=== PATIENT | male | born 1940 | race Caucasian/White ===

== ENCOUNTER → 2018-01-13 | Outpatient (CLI) | payer MEDICARE, BC ==
[~2018-01-13] MED LIST: ALBU6.7H INH; AMLO5TAB7 PO; AMOX1TAB61 PO; ASPI325T17 PO; ATOR20TA PO; FLUT1DIS3 INH; LEVO100T PO; METR500T PO; OXYC-306 PO; PARO10TA56 PO; VALS320T2 PO
== END | disposition home or self-care (01) ==
LOC: CVU 09:42
PROVIDERS: ATTEND Internal Medicine Cardiovascular Disease
DX: I65.23 Occlusion and stenosis of bilateral carotid arteries (principal); E78.00 Pure hypercholesterolemia, unspecified; I10 Essential (primary) hypertension; E78.5 Hyperlipidemia, unspecified
CPT/HCPCS: 93880

== ENCOUNTER → 2019-05-15 | Outpatient (CLI) | payer MEDICARE, BC ==
[~2019-05-15] MED LIST changes: -ALBU6.7H INH; +ALBU6.7H8 INH; +AMLO-150 PO; -AMLO5TAB7 PO; +REGADENOSON 0.4 MG/5 ML SYRINGE ONE
== END | disposition home or self-care (01) ==
LOC: CVU 07:30
PROVIDERS: ATTEND Nurse Practitioner Family
DX: I65.23 Occlusion and stenosis of bilateral carotid arteries (principal); I10 Essential (primary) hypertension
CPT/HCPCS: 78452; 93017; 93306; 93880; A9502; J2785

== ENCOUNTER → 2020-11-02 | Outpatient (CLI) | payer MEDICARE, BC ==
[~2020-11-02] MED LIST changes: -OXYC-306 PO; +OXYC1TAB17 PO; -REGADENOSON 0.4 MG/5 ML SYRINGE ONE
== END | disposition home or self-care (01) ==
LOC: CVU 07:43
PROVIDERS: ATTEND Nurse Practitioner Family
DX: I35.8 Other nonrheumatic aortic valve disorders (principal); I10 Essential (primary) hypertension; E78.5 Hyperlipidemia, unspecified; I44.7 Left bundle-branch block, unspecified
CPT/HCPCS: 93306